=== PATIENT | female | born 1980 | race Caucasian/White ===

== ENCOUNTER 2024-09-21 14:27 | Emergency (ER) | payer BC, SELFPAY ==
[2024-09-21 14:35] VITALS: BP 116/65
[2024-09-21 14:58] LABS: % Basophils 0.8 % (0-2); % Eosinophils 1.6 % (0-6); % Immature Granulocytes 0.3 % (0-0.5); % Lymphocytes 23.6 % (20.5-51.1); % Monocytes 7.7 % (1.7-9.3); Absolute Basophils 0.1 10^3/uL (0-0.2); Absolute Eosinophils 0.1 10^3/uL (0-0.7); Absolute Lymphocytes 1.5 10^3/uL (1.2-3.4); Absolute Monocytes 0.5 10^3/uL (0.1-0.6); Absolute Neutrophils 4.2 10^3/uL (1.4-6.5); Hemoglobin 12.2 g/dL (12.0-16.0); Mean Corpuscular Hgb 29.5 pg (27.0-31.0); Mean Corpuscular Volume 89.4 fL (81.0-99.0); Mean Platelet Volume 9.4 fL (7.4-10.4); Nucleated Red Blood Cells % 0 %; Platelet Count 173 10^3/uL (130-400); Red Blood Cell Count 4.14 10^6/uL (4.20-5.40); Red Cell Dist. Width 12.6 % (11.5-14.5); White Blood Cell Count 6.4 10^3/uL (4.8-10.8)
[2024-09-21 15:15] LABS: HCG, Serum Qualitative Screen Negative
[2024-09-21 15:20] LABS: ALT (SGPT) 36 U/L (0-35); AST (SGOT) 32 U/L (14-36); Albumin 4.1 g/dl (3.5-5.0); Alkaline Phosphatase 96 U/L (38-126); Blood Urea Nitrogen 16 mg/dl (7-17); Calcium 9.2 mg/dl (8.4-10.2); Carbon Dioxide 26 mmol/L (22-30); Chloride 109 mmol/L (98-107); Glucose 108 mg/dl (70-99); Potassium 4.1 mmol/L (3.5-5.1); Sodium 140 mmol/L (135-145); Total Bilirubin 0.5 mg/dl (0.2-1.3); Total Protein 6.6 g/dl (6.3-8.2); eGFR > 60.00
--- NOTE | 2024-09-21 16:23 | ED.GENMED ---
History of Present Illness
<Leeanna Jin PA-C - Last Filed: 09/21/24 22:35>
General
Chief Complaint: Skin Problem
Source: patient
Exam Limitations: none
Time Seen by Provider: 09/21/24 16:02
History of Present Illness
History of Present Illness:
44yoF with a history of hypothyroidism presenting for evaluation of neck pain and headache. She has been experiencing pain in her left side of her neck for the past 4 days. She has issues with whiplash so the neck pain is not usual for her. Her
neck pain is worse with certain movements and improves with massage. She also noticed some itching to her right flank 2 days ago and noticed a red circular rash. She went for acupuncture this afternoon. Shortly afterwards, she started having
shooting pain up the left side of her head which feels like electric shocks. No prior history of similar pains in the past. Pain is not improved with ibuprofen or Tylenol. She was seen at urgent care prior to arrival and was told that she likely
had Lyme disease and was told to go to the ED for evaluation. She denies any vomiting, fevers, joint pains/swelling.
Past History
<Leeanna Jin PA-C - Last Filed: 09/21/24 22:35>
Past History
ED Past Medical History: Asthma (Mild)
ED Past Surgical History: Gynecological and Orthopedic
Social History
Tobacco: Non-smoker
Alcohol: None
Drug: None
Personal:
Living: with family
Employment: Employed
Family History
Family History: CAD
Phy Exam
<Leeanan Jin PA-C - Last Filed: 09/21/24 22:35>
General Physical Exam
General Presentation: well appearing
General Skin: warm and dry
General Habitus: normal
General Mental: alert
ENT Exam
ENT Exam: TM's normal, normocephalic and other (+Reproducible tenderness to cervical portion of L trapezius muscle. No meningismus. )
Additional ENT: No scalp rash
Eye Exam
Eye Exam: PERRL, EOMI and conjunctiva normal
Pulmonary Exam
Pulmonary Exam: no respiratory distress
Neurological Exam
Neurological Exam: alert and no motor deficits
Bradley Coma Scale
Eye Opening: Spontaneous
Verbal Response: Oriented
Motor Response: Obeys Commands
GCS Total Score: 15
Skin Exam
Skin Exam: normal color, warm/dry and other (Bulls eye rash to the R flank consistent with erythema migrans)
Psychiatric Exam
Psychiatric Exam: normal mood/affect
Course
Salvadorlt;Leeanna Jin PA-C - Last Filed: 09/21/24 22:35>
Orders/Labs/Results
Orders:
Orders
09/21/24 14:41
Test Result ONCE
09/21/24 14:47
Complete Blood Count/With Diff Urgent
Comprehensive Metabolic Panel Urgent
HCG, Serum Qualitative Screen Urgent
Comment: Notify provider if positive test present
09/21/24 16:22
CT Angio Neck W/Wo Iv Contrast [CT Neck Angio W/wo Iv Contrast] Urgent
Comment:
Reason For Exam: Neck pain, r/o dissection
CT Head W/o Iv Contrast Urgent
Comment:
Reason For Exam: acute headache
0.9% Sodium Chloride 1000 ml [Nss] 1,000 ml IV BOLUS
Diphenhydramine [Benadryl] 25 mg IV NOW STA
Ketorolac [Toradol] 15 mg IV NOW STA
Magnesium Sulfate 2 Gram/50 ml [Magnesium Sulfate] 2 gram in 50 ml IV NOW
Metoclopramide [Reglan] 10 mg IV NOW STA
09/21/24 16:26
Lyme Progressive Urgent
09/21/24 18:23
Doxycycline [Vibramycin] 100 mg PO NOW STA
Abnormal Lab Results
09/21/24
14:47
RBC 4.14 L 10^6/uL
(4.20-5.40)
Chloride 109 H mmol/L
(98-107)
Glucose 108 H mg/dl
(70-99)
ALT 36 H U/L
(0-35)
09/21/24 14:47
09/21/24 14:47
Vital Signs
Initial and Last Documented VS:
Initial Vital Signs
Temp Pulse Resp BP Pulse Ox
98.2 F 78 16 116/65 98
09/21/24 14:35 09/21/24 14:35 09/21/24 14:35 09/21/24 14:35 09/21/24 14:35
Last Documented Vital Signs
Temp Pulse Resp BP Pulse Ox
98.2 F 74 18 106/60 99
09/21/24 14:35 09/21/24 19:15 09/21/24 19:15 09/21/24 19:15 09/21/24 19:15
<Kojo Ho MD - Last Filed: 09/21/24 16:47>
Orders/Labs/Results
Orders:
Orders
09/21/24 14:41
Test Result ONCE
09/21/24 14:47
Complete Blood Count/With Diff Urgent
Comprehensive Metabolic Panel Urgent
HCG, Serum Qualitative Screen Urgent
Comment: Notify provider if positive test present
09/21/24 16:22
CT Angio Neck W/Wo Iv Contrast [CT Neck Angio W/wo Iv Contrast] Urgent
Comment:
Reason For Exam: Neck pain, r/o dissection
CT Head W/o Iv Contrast Urgent
Comment:
Reason For Exam: acute headache
0.9% Sodium Chloride 1000 ml [Nss] 1,000 ml IV BOLUS
Diphenhydramine [Benadryl] 25 mg IV NOW STA
Ketorolac [Toradol] 15 mg IV NOW STA
Magnesium Sulfate 2 Gram/50 ml [Magnesium Sulfate] 2 gram in 50 ml IV NOW
Metoclopramide [Reglan] 10 mg IV NOW STA
09/21/24 16:26
Lyme Progressive Urgent
09/21/24 18:23
Doxycycline [Vibramycin] 100 mg PO NOW STA
Abnormal Lab Results
09/21/24
14:47
RBC 4.14 L 10^6/uL
(4.20-5.40)
Chloride 109 H mmol/L
(98-107)
Glucose 108 H mg/dl
(70-99)
ALT 36 H U/L
(0-35)
09/21/24 14:47
09/21/24 14:47
Vital Signs
Initial and Last Documented VS:
Initial Vital Signs
Temp Pulse Resp BP Pulse Ox
98.2 F 78 16 116/65 98
09/21/24 14:35 09/21/24 14:35 09/21/24 14:35 09/21/24 14:35 09/21/24 14:35
Last Documented Vital Signs
Temp Pulse Resp BP Pulse Ox
98.2 F 74 18 106/60 99
09/21/24 14:35 09/21/24 19:15 09/21/24 19:15 09/21/24 19:15 09/21/24 19:15
Salvadorlt;Leeanna Jin PA-C - Last Filed: 09/21/24 22:35>
MDM/Problems Addressed
Differential Diagnosis Includes:
44yoF here with L sided neck pain x 4 days. Pain now shooting up into head. Also c/o R flank rash. Seen at urgent care today and told she likely had Lyme disease. Sent to the ED for evaluation. Denies f/c. VSS. She is holding her L neck on exam and
there is reproducible muscular tenderness. Bulls eye rash noted to R flank consistent with erythema migrans. No nuchal rigidity and no clinical evidence of meningitis. Differential diagnosis includes but is not limited to: muscle spasm, cervicogenic
headache, tension headache, migraine, Lyme disease
Initial ED plan: Labs obtained in triage which are unremarkable. Will check CT head, CTA neck, and send Lyme testing. IV migraine cocktail and reassess.
<Leeanna Jin PA-C - Last Filed: 09/21/24 22:35>
*Critical Care Note
Total Time (30-74mins, 75-104mins- exclusive of procedures): Not Applicable
<Leeanna Jin PA-C - Last Filed: 09/21/24 22:35>
Update Note
Update Note:
Imaging negative for acute findings. Patient feeling improved on reassessment. Headache has resolved but she continues to have pain. Neck pain is clinically musculoskeletal. Very low suspicion that her neck pain is related to the Lyme disease.
Patient started empirically on doxycycline. Prescription also given for Robaxin. Advised follow-up with PCP and ED return precautions reviewed. Patient discharged in stable condition.
ED Attending Note
<Leeanna Jin PA-C - Last Filed: 09/21/24 22:35>
-
Portions of this chart may have been created with voice recognition software.� Occasional wrong word or��sound alike� substitutions may have occurred due to the inherent limitations of voice recognition software.
<Kojo Ho MD - Last Filed: 09/21/24 16:47>
ED Attending Note
Patient seen and examined by attending physician: Yes
I performed the substantive portion of visit, reviewed & personally made and approve the management plan that is documented in note by myself or MARCIE.: Yes
ED Attending Note:
44-year-old female healthy. Left neck pain started 4 days ago. Has been persistent since then. Positional in nature. Intermittent sharp episodes of pain rating up to the left side of the head. No general headache no visual issues no nausea or
vomiting. Also has general itchiness to her scalp but this started after a hair dye treatment. No numbness tingling or weakness to the arm. Also noticed a rash to her back. No other significant joint abnormalities.
On exam patient is nontoxic. She is holding the left side of her neck and holding it slightly rotated. She is able to ambulate without difficulty. She was able to stand without difficulty and show me the rash on her lower back that is consistent
with an ECM rash. She has no petechia or purpura or other rash. She is nonfocal. [employer] are normal. She is tenderness over the left lateral sternocleidomastoid muscles. No vesicular rash. Extraocular muscles intact. Pupils are equal. She is
nonfocal.
Impression #1 is clear ECM rash. Clinically this is not a not convinced the neck pain is directly related to the Lyme disease. She has no other significant joint abnormalities. The neck pain is clinically very musculoskeletal however with no
trauma she will receive a CT angio of the neck to rule out dissection and a plain head CT.
Plan would be doxycycline for dental amatory his pain manage follow-up of all testing is stable
Discharge Plan
Departure
Patient Disposition: Home (Routine Discharge)
Date of Disposition: 09/21/24
Time of Disposition: 18:23
Patient with high blood pressure during this ER visit?: No
Discharge Problem:
Erythema migrans (Lyme disease), Acute nonintractable headache, Neck pain on left side
Instructions: Lyme disease, Headache in adults - ED discharge instructions
Prescriptions:
New
doxycycline hyclate 100 mg capsule
100 mg PO BID 21 Days Qty: 41 0RF
methocarbamol 750 mg tablet
750 mg PO Q8H PRN (Reason: muscle spasms) Qty: 20 0RF
No Action
omeprazole magnesium [Prilosec OTC] 20 MG tablet,delayed release (DR/EC)
20 mg PO DAILY Qty: 20 0RF
prednisone 50 MG tablet
50 mg PO DAILY Qty: 5 0RF
Referrals:
Noah Giron MD [Family Provider, Internal Medicine]
Activity Restrictions/Additional Instructions:
Take antibiotics as prescribed for presumed Lyme disease. Take this antibiotic with food. Eat yogurt or take probiotics while taking this. Use sunscreen to avoid sunburn.
Please call your family doctor on Tuesday for follow-up. Return to the ER with any new or worsening symptoms.
Interventions
Interventions:
*Risk Screen - Suicide Last Done: 09/21/24 14:35
*Neglect/Abuse Screening Last Done: 09/21/24 14:35
*Nursing Disposition Last Done: 09/21/24 19:17
Discharge Date and Time
Discharge Date/Time: 09/21/24 19:18
Print Language: YAKUT
[2024-09-21] MEDS: MAGNESIUM SULFATE 50 IV (16:36)
[2024-09-21] MEDS: REGLAN 10 MG IV (16:36)
[2024-09-21] MEDS: TORADOL 15 MG IV (16:36)
[2024-09-21] MEDS: NSS 1000 IV (16:37)
[2024-09-21] MEDS: BENADRYL 25 MG IV (16:37)
[2024-09-21] MEDS: VIBRAMYCIN 100 MG PO (18:55)
[2024-09-21 19:15] VITALS: BP 106/60
[2024-09-24 13:57] LABS: Lyme Antibody Screen, EIA Negative (Negative)
== END 2024-09-21 19:18 | disposition home or self-care (01) ==
LOC: EMR 14:27
PROVIDERS: EMERGENCY PHYSICIAN Emergency Medicine; FAMILY PHYSICIAN Internal Medicine
DX: A69.20 Lyme disease, unspecified (principal); R51.9 Headache, unspecified; M54.2 Cervicalgia; E03.9 Hypothyroidism, unspecified; J45.909 Unspecified asthma, uncomplicated
CPT/HCPCS: 96365; 96375; 99284; 70450; 70498; 80053; 84703; 85025; 86618; Q9967